=== PATIENT | male | born 1995 | race Caucasian/White ===

== ENCOUNTER 2021-09-15 18:02 | Emergency (ER) | payer OTHER ==
[~2021-09-15 18:02] MED LIST: CLOTRIMAZOLE AF15 G5 XX
== END 2021-09-15 20:10 | disposition home or self-care (01) ==
LOC: FER 18:02
DX: S06.0X0A Concussion without loss of consciousness, initial encounter (principal); M54.6 Pain in thoracic spine; W00.0XXA Fall on same level due to ice and snow, initial encounter; Y92.009 Unspecified place in unspecified non-institutional (private) residence as the place of occurrence of the external cause
CPT/HCPCS: 70450; 72125; 72128